=== PATIENT | male | born 1980 | race Caucasian/White ===

== ENCOUNTER 2020-04-02 17:27 | Emergency (ER) | payer BC, OTHER ==
[2020-04-02 17:43] VITALS: BP 117/69; PULSE 76; TEMP 98.2; BMI 24.4
[2020-04-02 18:55] LABS: URINE APPEARANCE CLEAR; URINE BILIRUBIN NEGATIVE (NEGATIVE); URINE COLOR DK YELLOW; URINE GLUCOSE (UA) NEGATIVE (NEGATIVE); URINE KETONE TRACE (NEGATIVE)
[2020-04-02 18:56] LABS: URINE LEUK ESTERASE NEGATIVE (NEGATIVE); URINE NITRITE NEGATIVE (NEGATIVE); URINE PROTEIN TRACE (NEGATIVE)
[2020-04-02] MEDS ORDERED: IBUPROFEN 400 MG TABLET (FP) PO ONE ×2 (18:56→18:57)
[2020-04-02] MEDS ORDERED: DOXYCYCLINE HYCLATE 100 MG CAPSULE PO ONE ×2 (18:57→18:59)
== END 2020-04-02 19:15 | disposition home or self-care (01) ==
LOC: JERFT 17:27
PROC: 3E0233Z Introduction of Anti-inflammatory into Muscle, Percutaneous Approach (ICD-10-PCS; principal; 2020-04-02)
DX: N45.1 Epididymitis (principal)
CPT/HCPCS: 36415; 76870-TC; 81003; 87086; 87491; 87591; 99284-25

== ENCOUNTER 2023-11-04 12:50 | Emergency (ER) | payer OTHER, BC ==
[2023-11-04 13:06] VITALS: BP 126/78; PULSE 77; RESP 18; TEMP 98.6; BMI 24.4
[2023-11-04] MEDS ORDERED: DIPHTH,PERTUSS(ACELL),TET 0.5 ML DISP.SYRIN IM ONE (13:59)
[2023-11-04] MEDS: DIPHTH,PERTUSS(ACELL),TET 0.5 ML DISP.SYRIN IM ONE (14:04)
== END 2023-11-04 14:11 | disposition home or self-care (01) ==
LOC: JERFT 12:50 → JER 12:50 → JERFT 14:11
PROC: 3E0234Z Introduction of Serum, Toxoid and Vaccine into Muscle, Percutaneous Approach (ICD-10-PCS; principal; 2023-11-04)
DX: S61.213A Laceration without foreign body of left middle finger without damage to nail, initial encounter (principal); W29.3XXA Contact with powered garden and outdoor hand tools and machinery, initial encounter; Y99.0 Civilian activity done for income or pay; Z23 Encounter for immunization
CPT/HCPCS: 90715; 99283-25